=== PATIENT | female | born 1955 | race Caucasian/White ===

== ENCOUNTER → 2017-01-14 | Outpatient (CLI) | payer BC ==
[2017-01-14 19:46] LABS: BASOPHILS # (AUTO) 0.05 10*3/UL; EOSINOPHILS # (AUTO) 0.46 10*3/UL; EOSINOPHILS % (AUTO) 9.2 % (0-8); HEMATOCRIT 39.2 % (37.0-47.0); HEMOGLOBIN 12.2 g/dL (12.0-16.0); LYMPHOCYTES # (AUTO) 1.69 10*3/uL; MEAN CORPUSCULAR HEMOGLOBIN 24.6 PG (27-31); MEAN CORPUSCULAR HGB CONC 31.1 g/dL (33-37); MEAN CORPUSCULAR VOLUME 79.2 FL (81-99); MEAN PLATELET VOLUME 10.7 FL (7.4-12.2); MONOCYTES # (AUTO) 0.71 10*3/UL (0.3-0.8); MONOCYTES % (AUTO) 14.2 % (5-15); NEUTROPHILS # (AUTO) 2.07 10*3/UL; NEUTROPHILS % (AUTO) 41.5 % (50-80); RED BLOOD COUNT 4.95 10^6/uL (4.20-5.40)
[2017-01-14 19:49] LABS: PLATELET MORPHOLOGY COMMENT NORMAL MORPHOLOGY (NORM); WBC MORPHOLOGY COMMENT NORMAL MORPHOLOGY (NORM)
[2017-01-14 19:50] LABS: BUN/CREATININE RATIO 19.09 (6-20); CALCIUM 8.8 mg/dL (8.7-10.7); RBC MORPHOLOGY COMMENT SEE COMMENTS (NORM)
[2017-01-14 20:48] LABS: FREE T4 (FREE THYROXINE) 1.2 ng/dL (0.93-1.71)
== END ==
LOC: MOB LAB 16:23
DX: I10 Essential (primary) hypertension (principal); E03.9 Hypothyroidism, unspecified; K80.20 Calculus of gallbladder without cholecystitis without obstruction; E61.1 Iron deficiency; Z95.2 Presence of prosthetic heart valve
CPT/HCPCS: 36415; 80053; 84439; 84443; 85025